=== PATIENT | female | born 2000 | race African-American/Black ===

== ENCOUNTER 2020-02-04 18:41 | Emergency (ER) | payer SELFPAY ==
--- NOTE | 2020-02-04 19:29 | EDM.PDOCBH ---
ED HPI GENERAL MEDICAL PROBLEM - General Chief Complaint: Behavioral/Psych Stated Complaint: MENTAL HEALTH Time Seen by Provider: 02/04/20 19:03 - History of Present Illness INITIAL COMMENTS - FREE TEXT/NARRATIVE: History of present illness: 19-year-old female presenting with law enforcement after calling the police with depressions and feelings of suicide/ "bad thoughts" patient reports she does not know why she is feeling this way. She has never felt this way before. She is extremely upset and tearful. Past reports no past medical or psychiatric history. No substance abuse. Review of systems: As per history of present illness and below otherwise all systems reviewed and negative. Past medical history: As per history of present illness and as reviewed below otherwise noncontributory. Surgical history: As per history of present illness and as reviewed below otherwise noncontributory. Social history: No reported history of drug or alcohol abuse. Denies tobacco Family history: As per history of present illness and as reviewed below otherwise noncontributory. Physical exam: GEN: no acute distress, well appearing HEENT: Atraumatic, normocephalic, mucous membranes moist, Neck: supple, nontender, trachea midline. Lungs: No respiratory distress. Heart: RRR Abdomen: Soft, nondistended, nontender. Back: nontender Extremities: Atraumatic. Neurovascularly intact. Neuro: Awake, alert, oriented. Neuro Exam nonfocal. Psych: Extremely upset, tearful and anxious. Reports feeling thoughts of and suicide. No homicidal ideation. Skin: warm, dry, no lesions Diagnostics: [] Therapeutics: [] MDM: Impression: [] Plan: [] Definitive disposition and diagnosis as appropriate pending reevaluation and review of above. - Related Data Allergies Allergy/AdvReac Type Severity Reaction Status Date / Time No Known Allergies Allergy Verified 02/04/20 19:27 Home Meds: Home Meds . [No Known Home Meds] 02/04/20 [History] ED ROS GENERAL - Review of Systems Review Of Systems: See Below ED EXAM, BEHAVIORAL HEALTH - Physical Exam Exam: See Below COURSE, BEHAVIORAL HEALTH COMP - Course Vital Signs: Last Vital Signs Temp 97.4 F 02/04/20 19:24 Pulse 81 02/04/20 21:49 Resp 18 02/04/20 21:49 BP 132/82 02/04/20 21:49 Pulse Ox 98 02/04/20 21:49 Depression and suicidal ideation. No auditory or visual hallucinations and no homicidal ideation. Labs unremarkable. Drug screen negative. hCG negative. Placed under involuntary hold. Mildly tachycardic on arrival here but patient was visibly extremely upset and crying/tearful. After given Ativan and patient resting comfortably, her heart rate was in the 80s on recheck. Patient medically cleared. Case discussed with psychiatrist at [facility] who accepts the case. Orders, Labs, Meds: Active Orders 24 hr Category Date Time Status EKG Documentation Completion [RC] STAT Care 02/04/20 19:27 Active UA W/MICROSCOPIC [URIN] Stat Lab 02/04/20 19:40 Results Laboratory Tests 02/04/20 02/04/20 02/04/20 Range/Units 19:40 19:40 19:40 WBC (4.0-11.0) K/uL RBC (4.30-5.90) M/uL Hgb (12.0-16.0) g/dL Hct (36.0-46.0) % MCV (80.0-98.0) fL MCH (27.0-32.0) pg MCHC (31.0-37.0) g/dL RDW Std Deviation (28.0-62.0) fl RDW Coeff of Dheeraj (11.0-15.0) % Plt Count (150-400) K/uL MPV (7.40-12.00) fL Neut % (Auto) (48.0-80.0) % Lymph % (Auto) (16.0-40.0) % [place] % (Auto) (0.0-15.0) % Eos % (Auto) (0.0-7.0) % Baso % (Auto) (0.0-1.5) % Neut # (Auto) (1.4-5.7) K/uL Lymph # (Auto) (0.6-2.4) K/uL [place] # (Auto) (0.0-0.8) K/uL Eos # (Auto) (0.0-0.7) K/uL Baso # (Auto) (0.0-0.1) K/uL Nucleated RBC % /100WBC Nucleated RBCs # K/uL Sodium (136-145) mmol/L Potassium (3.5-5.1) mmol/L Chloride (98-107) mmol/L Carbon Dioxide (21.0-32.0) mmol/L BUN (7.0-18.0) mg/dL Creatinine (0.6-1.0) mg/dL Est Cr Clr Drug Dosing Estimated GFR (MDRD) ml/min Glucose (74-106) mg/dL Calcium (8.5-10.1) mg/dL Magnesium (1.8-2.4) mg/dL Total Bilirubin (0.2-1.0) mg/dL AST (15-37) IU/L ALT (14-63) IU/L Alkaline Phosphatase (46-116) U/L Total Protein (6.4-8.2) g/dL Albumin (3.4-5.0) g/dL Globulin (2.6-4.0) g/dL Albumin/Globulin Ratio (0.9-1.6) TSH 3rd Generation (0.36-3.74) uIU/mL Urine Color YELLOW Urine Appearance CLEAR Urine pH 6.0 (5.0-8.0) Ur Specific [place] >= 1.030 (1.001-1.035) Urine Protein NEGATIVE (NEGATIVE) mg/dL Urine Glucose (UA) NEGATIVE (NEGATIVE) mg/dL Urine Ketones 15 H (NEGATIVE) mg/dL Urine Occult Blood NEGATIVE (NEGATIVE) Urine Nitrite NEGATIVE (NEGATIVE) Urine Bilirubin NEGATIVE (NEGATIVE) Urine Urobilinogen 0.2 (<2.0) EU/dL Ur Leukocyte Esterase NEGATIVE (NEGATIVE) Urine HCG, Qual NEGATIVE (NEGATIVE) Salicylates (0-20) mg/dL Urine Opiates Screen NEGATIVE (NEGATIVE) Ur Oxycodone Screen NEGATIVE (NEGATIVE) Urine Methadone Screen NEGATIVE (NEGATIVE) Acetaminophen ug/mL Ur Barbiturates Screen NEGATIVE (NEGATIVE) Ur Phencyclidine Scrn NEGATIVE (NEGATIVE) Ur Amphetamine Screen NEGATIVE (NEGATIVE) U Methamphetamines Scrn NEGATIVE (NEGATIVE) U Benzodiazepines Scrn NEGATIVE (NEGATIVE) U Cocaine Metab Screen NEGATIVE (NEGATIVE) U Marijuana (THC) Screen NEGATIVE (NEGATIVE) Ethyl Alcohol mg/dL 02/04/20 02/04/20 Range/Units 19:43 19:43 WBC 6.50 (4.0-11.0) K/uL RBC 4.66 (4.30-5.90) M/uL Hgb 11.4 L (12.0-16.0) g/dL Hct 35.6 L (36.0-46.0) % MCV 76.4 L (80.0-98.0) fL MCH 24.5 L (27.0-32.0) pg MCHC 32.0 (31.0-37.0) g/dL RDW Std Deviation 45.7 (28.0-62.0) fl RDW Coeff of Dheeraj 17 H (11.0-15.0) % Plt Count 252 (150-400) K/uL MPV 9.30 (7.40-12.00) fL Neut % (Auto) 58.0 (48.0-80.0) % Lymph % (Auto) 31.4 (16.0-40.0) % [place] % (Auto) 6.6 (0.0-15.0) % Eos % (Auto) 3.8 (0.0-7.0) % Baso % (Auto) 0.2 (0.0-1.5) % Neut # (Auto) 3.8 (1.4-5.7) K/uL Lymph # (Auto) 2.0 (0.6-2.4) K/uL [place] # (Auto) 0.4 (0.0-0.8) K/uL Eos # (Auto) 0.3 (0.0-0.7) K/uL Baso # (Auto) 0.0 (0.0-0.1) K/uL Nucleated RBC % 0.0 /100WBC Nucleated RBCs # 0 K/uL Sodium 141 (136-145) mmol/L Potassium 3.3 L (3.5-5.1) mmol/L Chloride 106 (98-107) mmol/L Carbon Dioxide 22.5 (21.0-32.0) mmol/L BUN 6 L (7.0-18.0) mg/dL Creatinine 0.8 (0.6-1.0) mg/dL Est Cr Clr Drug Dosing TNP Estimated GFR (MDRD) > 60.0 ml/min Glucose 89 (74-106) mg/dL Calcium 9.3 (8.5-10.1) mg/dL Magnesium 1.8 (1.8-2.4) mg/dL Total Bilirubin 0.4 (0.2-1.0) mg/dL AST 24 (15-37) IU/L ALT 22 (14-63) IU/L Alkaline Phosphatase 52 (46-116) U/L Total Protein 7.3 (6.4-8.2) g/dL Albumin 3.9 (3.4-5.0) g/dL Globulin 3.4 (2.6-4.0) g/dL Albumin/Globulin Ratio 1.1 (0.9-1.6) TSH 3rd Generation 0.87 (0.36-3.74) uIU/mL Urine Color Urine Appearance Urine pH (5.0-8.0) Ur Specific [place] (1.001-1.035) Urine Protein (NEGATIVE) mg/dL Urine Glucose (UA) (NEGATIVE) mg/dL Urine Ketones (NEGATIVE) mg/dL Urine Occult Blood (NEGATIVE) Urine Nitrite (NEGATIVE) Urine Bilirubin (NEGATIVE) Urine Urobilinogen (<2.0) EU/dL Ur Leukocyte Esterase (NEGATIVE) Urine HCG, Qual (NEGATIVE) Salicylates 1.3 (0-20) mg/dL Urine Opiates Screen (NEGATIVE) Ur Oxycodone Screen (NEGATIVE) Urine Methadone Screen (NEGATIVE) Acetaminophen <2.0 ug/mL Ur Barbiturates Screen (NEGATIVE) Ur Phencyclidine Scrn (NEGATIVE) Ur Amphetamine Screen (NEGATIVE) U Methamphetamines Scrn (NEGATIVE) U Benzodiazepines Scrn (NEGATIVE) U Cocaine Metab Screen (NEGATIVE) U Marijuana (THC) Screen (NEGATIVE) Ethyl Alcohol < 3.0 mg/dL Medications Discontinued Medications Generic Name Dose Route Start Last Admin Trade Name Susannah PRN Reason Stop Dose Admin Lorazepam 1 mg 02/04/20 19:41 02/04/20 19:53 Ativan PO 02/04/20 19:42 1 mg ONETIME ONE Administration Medical Clearance: 02/04/20 21:07 Patient reassessed, resting comfortably and in less distress than on arrival here. Discussed plan of care with the patient. She agrees. The patient does report that she has in the past occasionally struggled with depression and anxiety though never as severe as today, and has never been on or required any treatment. She does report that she occasionally gets to a "really dark place" that she sometimes has difficulty pulling herself out of but that she has never felt suicidal. She does report that her mother had a mental breakdown and struggled chronically with severe anger and emotional lability, and the patient reports that she has occasionally noticed herself feeling some severe anger if she gets upset and therefore has tried very hard not to get overly upset. She is medically cleared at this time. 02/04/20 21:[address] Prado, psychiatrist at [facility]. We discussed the patient's labs and presentation. She agrees with plan for transfer and accepts the patient for transfer and psychiatric evaluation and work-up. Departure - Departure Time of Disposition: 21:24 Disposition: DC/Tfer to Psych Hosp/Unit 65 Clinical Impression: Suicidal ideation Major depression Qualifiers: Active/Remission status: currently active Major depression episode severity: severe Psychotic features: without psychotic features - Discharge Information Referrals: PCP,None [Primary Care Provider] - Forms: ED Department Discharge Sepsis Event Note (ED) - Evaluation Sepsis Screening Result: No Definite Risk - Focused Exam Vital Signs: Vital Signs Temp Pulse Resp BP Pulse Ox 02/04/20 21:49 81 18 132/82 98 02/04/20 19:24 97.4 F 101 H 24 H 139/91 H 99 - My Orders Last 24 Hours: My Active Orders 02/04/20 19:27 EKG Documentation Completion [RC] STAT 02/04/20 19:40 UA W/MICROSCOPIC [URIN] Stat - Assessment/Plan Last 24 Hours: My Active Orders 02/04/20 19:27 EKG Documentation Completion [RC] STAT 02/04/20 19:40 UA W/MICROSCOPIC [URIN] Stat
[2020-02-04] MEDS ORDERED: LORazepam 1 MG Tab PO ONE (19:41)
[2020-02-04 20:38] LABS: ACETAMINOPHEN <2.0 ug/mL; BLOOD UREA NITROGEN,BUN 6 mg/dL (7.0-18.0); CARBON DIOXIDE,CO2 22.5 mmol/L (21.0-32.0); CHLORIDE,CL 106 mmol/L (98-107); GLUCOSE RANDOM 89 mg/dL (74-106); POTASSIUM,K 3.3 mmol/L (3.5-5.1); SODIUM,NA 141 mmol/L (136-145)
== END 2020-02-05 06:15 ==
LOC: MW.ED 18:41
DX: F32.2 Major depressive disorder, single episode, severe without psychotic features (principal)
CPT/HCPCS: 36415; 80053; 80305; 80307; 81001; 81025; 83735; 84443; 85025; 93005; 99285; A9270; 99284

== ENCOUNTER 2021-08-30 17:38 | Emergency (ER) | payer SELFPAY ==
[2021-08-30] MEDS ORDERED: Ketorolac 30 MG/ML SDV IVPUSH ONE (17:57)
[2021-08-30 18:22] LABS: BLOOD UREA NITROGEN,BUN 7 mg/dL (7.0-18.0); CARBON DIOXIDE,CO2 25.3 mmol/L (21.0-32.0); CHLORIDE,CL 106 mmol/L (98-107); GLUCOSE RANDOM 82 mg/dL (74-106); POTASSIUM,K 3.7 mmol/L (3.5-5.1); SODIUM,NA 140 mmol/L (136-145)
[2021-08-30 18:44] LABS: CORONAVIRUS COVID-19 NAA NEGATIVE (NEGATIVE); INFLUENZA A NAA NEGATIVE (NEGATIVE); INFLUENZA B NAA NEGATIVE (NEGATIVE)
== END 2021-08-30 19:31 | disposition home or self-care (01) ==
LOC: MW.ED 17:38
DX: R07.9 Chest pain, unspecified (principal); Z20.822 Contact with and (suspected) exposure to COVID-19
CPT/HCPCS: 0240U; 36415; 71045; 80053; 84484; 84703; 85025; 93005; 96374; 99285; J1885

== ENCOUNTER 2022-04-01 13:37 | Emergency (ER) | payer BC ==
[2022-04-01] MEDS ORDERED: Metoclopramide 10 MG/2 ML SDV IVPUSH ONE (14:15)
[2022-04-01] MEDS ORDERED: Sodium Chloride 0.9% 1,000 ML IV ONE (14:15)
[2022-04-01] MEDS ORDERED: Sodium Chloride 0.9% 2.5 ML Syringe FLUSH PRN (14:15)
[2022-04-01] MEDS ORDERED: Sodium Chloride 0.9% 10 ML Syringe FLUSH PRN (14:15)
[2022-04-01 15:19] LABS: CARBON DIOXIDE,CO2 25.4 mmol/L (21.0-32.0); POTASSIUM,K 3.3 mmol/L (3.5-5.1)
[2022-04-01] MEDS ORDERED: Potassium Chloride 10 MEQ Tab.ER PO ONE (15:48)
== END 2022-04-01 16:15 | disposition home or self-care (01) ==
LOC: MW.ED 13:37
DX: O21.1 Hyperemesis gravidarum with metabolic disturbance (principal); Z3A.01 Less than 8 weeks gestation of pregnancy
CPT/HCPCS: 36415; 80048; 84702; 85025; 86900; 86901; 96361; 96374; 99284; A9270; J2765; J3490; J7030

== ENCOUNTER 2022-04-05 14:40 | Observation (INO) | payer BC ==
[2022-04-05] MEDS ORDERED: Sodium Chloride 0.9% 1,000 ML IV ONE (15:02)
[2022-04-05] MEDS ORDERED: Sodium Chloride 0.9% 2.5 ML Syringe FLUSH PRN (15:02)
[2022-04-05] MEDS ORDERED: Metoclopramide 10 MG/2 ML SDV IVPUSH ONE ×2 (15:02→21:53)
[2022-04-05] MEDS ORDERED: Sodium Chloride 0.9% 10 ML Syringe FLUSH PRN (15:02)
[2022-04-05 15:37] LABS: CARBON DIOXIDE,CO2 25.7 mmol/L (21.0-32.0); POTASSIUM,K 3.2 mmol/L (3.5-5.1)
[2022-04-05] MEDS: D5 1/2 NS w/ 40 mEq/L KCl 1,000 ML IV SCH ×2 (16:57→22:27)
[2022-04-05] MEDS: Ondansetron 4 MG Tab.DIS PO PRN (20:09)
[2022-04-06] MEDS: Ondansetron 4 MG Tab.DIS PO PRN ×6 (00:11→22:33)
[2022-04-06] MEDS: D5 1/2 NS w/ 40 mEq/L KCl 1,000 ML IV SCH ×3 (03:42→19:37)
[2022-04-06 06:08] LABS: CARBON DIOXIDE,CO2 23.9 mmol/L (21.0-32.0); POTASSIUM,K 4.2 mmol/L (3.5-5.1)
[2022-04-06] MEDS: Metoclopramide 10 MG/2 ML SDV IVPUSH PRN ×3 (10:18→21:03)
[2022-04-06] MEDS ORDERED: Acetaminophen 325 MG Tab PO PRN (23:56)
[2022-04-07] MEDS: D5 1/2 NS w/ 40 mEq/L KCl 1,000 ML IV SCH (02:28)
[2022-04-07] MEDS: Metoclopramide 10 MG/2 ML SDV IVPUSH PRN (03:00)
[2022-04-07] MEDS: Ondansetron 4 MG Tab.DIS PO PRN ×2 (03:40→08:33)
== END 2022-04-07 13:20 | disposition home or self-care (01) ==
LOC: MW.ED 14:40 → MW.MS 16:22
PROVIDERS: ADMIT Obstetrics & Gynecology; ATTEND Obstetrics & Gynecology
DX: O21.0 Mild hyperemesis gravidarum (principal); O99.891 Other specified diseases and conditions complicating pregnancy; E86.0 Dehydration; Z3A.01 Less than 8 weeks gestation of pregnancy; Z20.822 Contact with and (suspected) exposure to COVID-19
CPT/HCPCS: 36415; 71045; 80053; 84484; 84702; 85025; 87635; 93005; 96361; 96374; 99285; A9270; J2765; J3480; J3490; J7030; U0002

== ENCOUNTER 2023-11-26 12:18 | Emergency (ER) | payer BC ==
[2023-11-26] MEDS: Sodium Chloride 0.9% 1,000 ML IV ONE (12:48)
[2023-11-26] MEDS: Ondansetron 4 MG Tab.DIS PO ONE (12:49)
[2023-11-26] MEDS: Ibuprofen 400 MG Tab PO ONE (12:49)
[2023-11-26] MEDS: Sodium Chloride 0.9% 2.5 ML Syringe FLUSH PRN (12:49)
[2023-11-26] MEDS: Acetaminophen 500 MG Tab PO ONE (12:49)
[2023-11-26] MEDS: Sodium Chloride 0.9% 10 ML Syringe FLUSH PRN (12:49)
[2023-11-26] MEDS: Ketorolac 30 MG/ML SDV IVPUSH ONE (12:59)
[2023-11-26 13:15] LABS: CORONAVIRUS COVID-19 NAA NEGATIVE (NEGATIVE); INFLUENZA A NAA NEGATIVE (NEGATIVE); INFLUENZA B NAA NEGATIVE (NEGATIVE); RESPIRATORY SYNCYTIAL VIR NAA NEGATIVE (NEGATIVE)
[2023-11-26] MEDS: methylPREDNISolone Sodium Succinate 125 MG/2 ML SDV IVPUSH ONE (14:28)
== END 2023-11-26 14:46 | disposition home or self-care (01) ==
LOC: MW.ED 12:18
DX: J02.9 Acute pharyngitis, unspecified (principal); Z75.8 Other problems related to medical facilities and other health care; Z79.899 Other long term (current) drug therapy
CPT/HCPCS: 0241U; 87651; 93005; 96361; 96374; 96375; 99284; A9270; J1885; J2930; J3490; J7030; 93010

== ENCOUNTER 2024-02-24 14:13 | Emergency (ER) | payer BC ==
[2024-02-24 15:16] LABS: CORONAVIRUS COVID-19 NAA NEGATIVE (NEGATIVE); INFLUENZA A NAA NEGATIVE (NEGATIVE); INFLUENZA B NAA NEGATIVE (NEGATIVE); RESPIRATORY SYNCYTIAL VIR NAA NEGATIVE (NEGATIVE)
== END 2024-02-24 15:33 | disposition home or self-care (01) ==
LOC: MW.ED 14:13
DX: R05.9 Cough, unspecified (principal); R11.0 Nausea; Z75.8 Other problems related to medical facilities and other health care; I10 Essential (primary) hypertension
CPT/HCPCS: 0241U; 99283

== ENCOUNTER 2024-08-27 17:13 | Emergency (ER) | payer SELFPAY ==
[2024-08-27] MEDS: Famotidine 20 MG Tab PO STA (19:05)
[2024-08-27] MEDS: Cetirizine 10 MG Tab PO STA (19:05)
[2024-08-27] MEDS: methylPREDNISolone Sodium Succinate 40 MG/1 ML SDV IM STA (19:06)
== END 2024-08-27 19:45 | disposition home or self-care (01) ==
LOC: MW.ED 17:13
DX: L30.8 Other specified dermatitis (principal); Z75.8 Other problems related to medical facilities and other health care; I10 Essential (primary) hypertension
CPT/HCPCS: 96372; 99282; A9270; J2919

== ENCOUNTER 2025-05-02 04:43 | Emergency (ER) | payer MEDICAID ==
[2025-05-02] MEDS: Benzocaine 20% Topical Spray UD MUCMEM ONE (05:16)
[2025-05-02] MEDS: Ketorolac 30 MG/ML SDV IM ONE (05:17)
[2025-05-02] MEDS: Lidocaine 2% Viscous Solution 15 ML UD PO ONE (05:18)
== END 2025-05-02 05:37 | disposition home or self-care (01) ==
LOC: MW.ED 04:43
DX: K02.9 Dental caries, unspecified (principal); G89.29 Other chronic pain; I10 Essential (primary) hypertension; Z79.899 Other long term (current) drug therapy
CPT/HCPCS: 96372; 99282; A9270; J1885; J3490; 99283